=== PATIENT | female | born 2000 | race Caucasian/White ===

== ENCOUNTER 2023-09-24 14:15 | Outpatient (REF) | payer OTHER, SELFPAY ==
--- NOTE | ~2023-09-24 | XR_ITS ---
EXAMINATION: XR LUMBOSACRAL SPINE CLINICAL INFORMATION: Lower back pain. COMPARISON: None available. TECHNIQUE: AP and lateral views of the lumbar spine and lateral view of the lumbosacral junction. FINDINGS: The vertebral bodies and posterior elements are normal. The disc spaces are preserved and the vertebral alignment is normal. The paraspinal soft tissues are normal. XR/XR lumbar spine 2-3V IMPRESSION: Unremarkable examination.
[2023-09-24 15:46] LABS: MANUAL DIFF FLAG NO
[2023-09-24 15:48] LABS: Basophils Absolute Auto 0.1 X10*3/uL (0.0-0.2); Basophils Percent Auto 0.7 % (0-2); Eosinophils Absolute Auto 0.2 X10*3/uL (0.0-0.4); Eosinophils Percent Auto 3.3 % (0-4); Hematocrit 43.2 % (37.0-47.0); Hemoglobin 14.2 g/dl (12.0-16.0); Imm Gran Abs Auto 0.03 X10*3/uL (0.00-0.03); Imm Gran Pct Auto 0.4 % (0.0-0.4); Lymphocytes Absolute Auto 1.8 X10*3/uL (1.2-4.9); Mean Corpuscular HGB Conc 32.9 g/dl (31.0-35.0); Mean Corpuscular Hemoglobin 30.1 pg (27.0-33.0); Mean Corpuscular Volume 91.5 fL (80.0-98.0); Mean Platelet Volume 10.7 fL (9.4-12.3); Monocytes Absolute Auto 0.4 X10*3/uL (0.1-1.2); Neutrophils Absolute Auto 4.9 x10*3/uL (2.0-8.3); Neutrophils Percent Auto 65.6 % (45-73); Platelet Count 277 X10*3/uL (160-400); Red Blood Count 4.72 X10*6/uL (4.20-5.50); Red Cell Distribution Width 12.5 % (11.0-16.0); White Blood Count 7.4 X10*3/uL (4.8-10.8)
[2023-09-24 16:07] LABS: Alanine Aminotransferase 13 U/L (0-31); Albumin Level 3.7 g/dL (3.5-5.0); Alkaline Phosphatase 61 U/L (39-117); Anion Gap 12 (12-20); Aspartate Amino Transferase 14 U/L (5-31); Bilirubin Total 0.2 mg/dL (0.0-1.0); Blood Urea Nitrogen 12 mg/dL (9-16); Calcium 8.9 mg/dL (8.4-10.2); Carbon Dioxide 26 mmol/L (22-29); Chloride 106 mmol/L (96-108); Cholesterol 184 mg/dL (<200); Estimated Glomerular Filt Rate > 60; Glucose Fasting 82 mg/dL (60-99); HDL Cholesterol 58 mg/dL (>40); LDL Cholesterol Calculated 104 mg/dL (<100); Potassium 3.9 mmol/L (3.3-5.1); Sodium 140 mmol/L (135-145); Total Protein 6.7 g/dL (6.5-8.0); Triglycerides 110 mg/dL (<150)
[2023-09-24 16:23] LABS: Free T4 (Free Thyroxine) 0.93 ng/dL (0.71-1.85); Thyroid Stimulating Hormone 1.13 uIU/mL (0.32-4.0)
== END 2023-09-24 14:16 | disposition home or self-care (01) ==
LOC: HO.HMGCX 14:15
PROVIDERS: PCP Internal Medicine; Visit Provider Internal Medicine
DX: M54.50 Low back pain, unspecified (principal); R53.83 Other fatigue; E78.5 Hyperlipidemia, unspecified
CPT/HCPCS: 36415; 72100; 80053; 80061; 84439; 84443; 85025

== ENCOUNTER 2025-08-11 11:42 | Outpatient (REF) | payer OTHER, SELFPAY ==
[2025-08-11 11:55] LABS: MANUAL DIFF FLAG NO
[2025-08-11 12:11] LABS: Hematocrit 42.8 % (37.0-47.0); Hemoglobin 14.2 g/dl (12.0-16.0); Imm Gran Abs Auto 0.02 X10*3/uL (0.00-0.03); Imm Gran Pct Auto 0.2 % (0.0-0.4); Lymphocytes Absolute Auto 2.0 X10*3/uL (1.2-4.9); Mean Corpuscular HGB Conc 33.2 g/dl (31.0-35.0); Mean Corpuscular Hemoglobin 30.5 pg (27.0-33.0); Mean Corpuscular Volume 91.8 fL (80.0-98.0); NRBC Abs Auto 0.000 X10*3/uL (0.0-0.012); NRBC Pct Auto 0.0 /100WBC (0.0-0.2); Platelet Count 268 X10*3/uL (160-400); Red Blood Count 4.66 X10*6/uL (4.20-5.50); White Blood Count 8.1 X10*3/uL (4.8-10.8)
[2025-08-11 12:43] LABS: Alanine Aminotransferase 16 U/L (0-31); Albumin Level 4.1 g/dL (3.5-5.0); Alkaline Phosphatase 67 U/L (39-117); Anion Gap 10 (12-20); Aspartate Amino Transferase 39 U/L (5-31); Blood Urea Nitrogen 14 mg/dL (9-16); Calcium 8.9 mg/dL (8.4-10.2); Carbon Dioxide 27 mmol/L (22-29); Chloride 108 mmol/L (96-108); Cholesterol 178 mg/dL (<200); Estimated Glomerular Filt Rate > 60; HDL Cholesterol 58 mg/dL (>40); Potassium 4.1 mmol/L (3.3-5.1); Sodium 141 mmol/L (135-145); Total Protein 6.8 g/dL (6.5-8.0); Triglycerides 207 mg/dL (<150)
[2025-08-11 13:09] LABS: Folate 12.5 ng/mL (> or = 4.0); Vitamin B12 298 pg/mL (200-900)
--- OUTSIDE RECORDS SUMMARY | 2025-08-11 13:57 | XMS_ITS | Clinical Summary ---
Author Organization [facility] Address [address] [address] Phone Care Team Providers Care Mortgage Loan Closer Name Role Phone Messi Billings DO Unavailable Messi Billings DO Primary Care Provider [phone] Allergies Active Allergy Reactions Criticality Noted Date Comments Tree Nuts Anaphylaxis High 02/03/2020 Medications EPINEPHrine 0.3 mg/0.3 mL auto-injector as directed 1 Active LORazepam (ATIVAN) 1 MG tabletIndicatio ns:Anxiety Take 1 tablet by mouth 1 hour prior to procedure. 1 tablet 3 Active Additional Information Patient not taking.Reported on 06/01/2025 buPROPion SR (SMOKING DETERRENT) 150 mg Take 1 tablet by mouth every morning. 3 Active LORazepam (ATIVAN) 1 MG tabletIndicatio ns:Anxiety due to invasive procedure Take 1 tablet 1 hour prior to procedure. 1 tablet 4 Active Additional Information Patient not taking.Reported on 06/01/2025 LORazepam (ATIVAN) 1 MG tabletIndicatio ns:Anxiety due to invasive procedure Take one tablet one hour prior to procedure. 1 tablet 4 Active Additional Information Patient not taking.Reported on 06/01/2025 norgestrel-ethi nyl estradioL (LOW-OGESTREL, 28,) 0.3-0.03 mg per tabletIndicatio ns:Uses control Take 1 tablet by mouth every morning. 84 tablet 3 5 Active Active Problems Problem Noted Date Diagnosed Date Mild episode of recurrent major depressive disor mami 02/07/2024 Assessment & Plan (02/07/2024 4:48 PM EDT): Charissa has a history of depression-she is taking her bupropion as directed-she sees a psychiatrist. Atypical squamous cells of u ndetermined significance (ASCUS) on Papanicolaou smear of cervix 02/07/2024 Assessment & Plan (02/07/2024 4:47 PM EDT): Charissa is due for repeat Pap-she has an appointment with her DECORATING MACHINE OPERATOR in the near future. Status post LEEP noted on her surgical history. Chronic bilateral low back pain without sciatica 02/07/2024 Assessment & Plan (02/07/2024 4:48 PM EDT): Charissa presents as a new patient to [facility]. She signed a record release-I will review her previous medical records in detail. She notes that she has had an x-ray of the lower back in the past showing no major abnormalities. She has tenderness palpation along the SI joints bilaterally and not along the lumbar spine-I put a referral into physical therapy today. I gave her guidance to continue with her exercise routine. I informed her to call if her symptoms are getting worse at which point I will further investigate with image studies and likely referral to physiatry. Follow-up in 3 months for her CPE. She understands and agrees with this plan of action. Need for hepatitis C screening test 02/07/2024 Assessment & Plan (02/07/2024 4:49 PM EDT): Charissa will go for the above lab work and I will update her with result. Screening for human immunodeficiency virus 02/06 Assessment & Plan (02/07/2024 4:49 PM EDT): Charissa will go for the above lab work and I will update her with result. Dysuria 02/07/2024 Assessment & Plan (02/07/2024 4:47 PM EDT): Charissa presents for ongoing dysuria. She had a urine check done at an urgent care recently-no infection appreciated but she was given prophylactic antibiotics and completed this-no improvement. I will have her go for repeat urinalysis with reflex. I will also have her go for an STD check as well as a CMP and I will update her with the results. I informed her to call if her symptoms get worse or if there are any other issues or concerns. She understands and agrees. Screen for STD (sexually transmitted disease) Assessment & Plan (02/07/2024 4:49 PM EDT): Charissa will go for the above lab work and I will update her with result. Need for Td vaccine 02/07/2024 Assessment & Plan (02/07/2024 4:49 PM EDT): Charissa is due for a Td booster-she was in agreement with this. This was given today in the office. No complications. She was appreciative. Jaw pain 02/07/2024 Assessment & Plan (02/07/2024 4:50 PM EDT): Charissa has been having jaw pain intermittently. Currently no issues today. She will follow-up with her dentist in the fall. I informed her to call if there are any other issues or concerns. She understands and agrees. 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 Had trial of expectant management with frequent colposcopy. But continued to have ROHIT III on biopsies; so LEEP performed by [facility] provider at [facility]. Pos margin reported. Recommendation of prior provider was 6 month repeat pap. ASCCP Guidelines: age based guidelines are lacking but with pos margin recommend repeat pap and ECC in 4-6 months and then cotesting x 2 years. If all normal then repeat pap in 3 years. If any abnormality, will need to repeat colpo. Assessment & Plan (02/05/2020 4:32 PM EDT): Pap done today History of loop electrical excision procedure (L EEP) 02/05/2020 Overview (02/05/2020): 09/02/2019: Secondary to ROHIT III, pos Margin. Assessment & Plan (02/05/2020 4:33 PM EDT): Repeat pap done today. Encounters Date Type Department Care Team Description 07/08/2025 Refill [facility] [address] [place] [address] Iraida Burt MA Medication Refill 06/01/2025 5:00 PM EDT Office Visit [facility] [address] [place] [address] Marine Argueta CNP Frequency of micturition (Primary Dx) from Last 3 Months Immunizations Immunization Administration Dates Next Due DTaP 01/11/2004, 0,06/10/1999,05/02,03/07/1999 [id number] FORMULATION 10/08/2009 HPV,quadrivalent 07/19/2015, 5,01/08/2015,06/12 Hepatitis A, Unspecified 03/30/2011 Hepatitis A, pediatric, unsp ecified formulation 01/08/2015,03/30/2011 Hepatitis B 06/10/1999,01/03/1999,1998 Hepatitis B, unspecified formulation 06/10/1999, 01/03/1999,1998 Hib, unspecified formulation 03/05/2000, 06/10/1999,04/12/1999,03/07 Hib,PRP-T 03/05/2000, 9,04/12/1999,03/07 INFLUENZA, SPLIT VIRUS, TRIV ALENT W/ PRESERVATIVE IM 06/18/2015,05/27/2012,06/05/2011 IPV 01/11/2004, 0,05/02/1999,03/07 Influenza Quadrivalent MDCK Preservative Free IM 04/27/2019 Influenza trivalent preserva tive free intradermal 06/12/2014 Influenza, whole 10/08/2009 MMR 01/11/2004,12/05/1999 Meningococcal ACWY, unspecif ied formulation 01/08/2015,02/10/2010 Meningococcal MCV4P 02/10/2010 Pneumococcal conjugate, PCV 7 06/08/2000, 000 Rotavirus,pentavalent 03/07/1999 Td (adult),2 Lf Tetanus Toxo id, PF, Adsorbed 02/07/2024 Tdap 03/30/2011 Varicella 08/12/2020,03/30/2011,12/05/1999 Family History Medical History Relation Comments Hyperlipidemia Father Hypertension Father Anxiety disorder Mother Depression Mother Strabismus Mother Thyroid cancer Mother Cancer Paternal Aunt Prostate cancer Paternal Grandfather Breast cancer Paternal Grandmother CV disease Paternal Grandmother Skin cancer Unspecified Relation Status Comments Father Alive Mother Alive Paternal Aunt Paternal Grandfather Paternal Grandmother Unspecified Social History Tobacco Use Types Packs/Day Years Used Date Smoking Tobacco: Never Smokeless Tobacco: Never Tobacco Cessation:Counseling Given: Not Answered Alcohol Use Standard Drinks/Week Comments Yes 6 (1 standard drink = 0.6 oz pure alcohol) 1-2 times a week, 3 drinks at a time on average Child or Family Care Answer Date Record ed Do you have problems with on e of the following making it difficult for you to work, study, or receive health care? No 02/07/2024 Education Answer Date Recorded Are you interested in help w ith more adult education (for example, completing high school, GED, job training, learning the [place] language, technical skills, or developing parenting skills)? No 02/07/2024 Are you concerned about learning? Not on file 02/07/2024 No 02/07/2024 Yes 02/07/2024 Food Answer Date Recorded Within the past 6 months we worried whether our food would run out before we got money to buy more. Sometimes True 024 Within the past 6 months the food we bought just didn't last and we didn't have enough money to get more. Never True 01/10 Residential Stability Answer Date Recor ded What is your housing situation today? I have a place to live today, but I am worried about losing it in the next 3 months 02/07/2024 How many times have you move d in the past 12 months? Zero (I did not move) 02/07/2024 Paying for Meds Answer Date Recorded Do you have trouble paying for medicines? Yes 02/07/2024 Paying Utility Bills Answer Date Record ed Do you have trouble paying your heating or elect ricity bill? No 02/07/2024 Transportation Answer Date Recorded Has the lack of transportati on kept you from medical appointments or from getting medications? No 02/07/2024 Unemployment Answer Date Recorded Are you currently unemployed or working on a part-time or temporary basis, and looking for work? No 02/07/2024 Digital Access Answer Date Recorded No 02/07/2024 Yes 02/07/2024 Do you have reliable internet access at home? Ye s 02/07/2024 Do you have a device (e.g., phone, tablet, computer) with a working camera? Yes 02/07/2024 SNAP & WIC Answer Date Recorded Do you receive benefits from SNAP (the Supplemental Nutrition Assistance Program) or the Food Stamp Program? Yes 02/07/2024 SNAP is a free program, interested in learning m ore? Not on file 02/07/2024 Can we help you enroll in SNAP? Not on file 02/07/2024 Benefits received from WIC? Not on file 01/10 WIC is a free program, interested in learning mo re? Not on file 02/07/2024 Can we help you enroll in WIC? Not on file 0 02/07/2024 Intimate Partner Violence Answer Date R ecorded Denied Basic Needs Not on file 02/07/2024 In the past 12 months have y ou been in a relationship with a person who hurts, threatens, or tries to control you? No 02/07/2024 Worried food would run out Not on file 02/06 In the past 12 months have y ou been in a relationship with a person who hurts, threatens, or tries to control you? 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 Not on file Not on fi le Not on file Last Filed Vital Signs Vital Sign Reading Time Taken Comments Blood Pressure 110/76 06/01/2025 5:25 PM EDT Pulse 72 06/01/2025 5:25 PM EDT Temperature 36.9 C (98.4 F) 06/01/2025 5:25 PM EDT Respiratory Rate 16 06/01/2025 5:25 PM EDT Oxygen Saturation 99% 06/01/2025 5:25 PM EDT Inhaled Oxygen Concentration - - Weight 59 kg (130 lb) 06/01/2025 5:25 PM EDT Height 162.6 cm (5' 4 ) 06/01/2025 5:25 PM EDT Body Mass Index 22.31 06/01/2025 5:25 PM EDT Plan of Treatment Health Maintenance Due Date Last Done Comments PNEUMOCOCCAL VACCINES (0-49 years) (1 of 2 - PCV) 2017 06/08/2000, 04/04/2000 DEPRESSION SCREENING 02/06/2025 02/07/2024, 02/07/20 24 INFLUENZA VACCINE (#1) 2025 9, 06/18/2015, 06/12/2014, Additional history exists PAP SMEAR 05/07/2025 05/07/2024, 02/2023, 10/20/2020, Additional history exists COVID-19 VACCINE ( season) 2025 09/19/2021, 02/08/2021, 01/10/2021 HEPATITIS C SCREENING 12/09/2025 Postpo anni from 2016 (Patient Declines / Guardian Declines) HIV ONE-TIME SCREENING (18-65 YEARS) 12/09/2025 Postponed from 2016 (Patient Declines / Guardian Declines) Adult Td,Tdap Booster 02/06/2034 02/07/2024 , 03/08/2021, 03/30/2011 HIB VACCINES Completed 03/05/2000, 02/09, 06/10/1999, Additional history exists HEPATITIS A VACCINES Completed 01/08/2015, 03/30/2011, 03/30/2011 MENINGOCOCCAL VACCINES (ACWY) Completed 01/08/2015, 02/10/2010, 02/10/2010 HPV VACCINES Completed 07/19/2015, 02/2015, 01/08/2015, Additional history exists SMOKING STATUS SCREENING (Once After 26 Yrs) Completed 06/03/2024 MENINGOCOCCAL VACCINES (B) Aged Out N o longer eligible based on patient's age to complete this topic Medical Devices Not on file Procedures Procedure Name Priority Date/Time Associated Diagnosis Comments URINE CULTURE Routine 06/01/2025 6:04 PM EDT Frequency of micturition POCT URINE DIPSTICK Routine 06/01/2025 5 :32 PM EDT PAP TEST Routine 05/07/2024 12:00 AM EDT from Last 3 Months or Most Recently Relevant to Health Maintenance Results * (ABNORMAL) Urine Culture (06/01/2025 6:04 PM EDT) Special Requests None 06/01/2025 6:04 PM EDT [facility] Urine Culture 10,000 to 100,000 colony forming units per mL MIXED LINA (3 OR MORE COLONY TYPES) Culture indicates contamination . Please resubmit if necessary.(A) 06/03/2025 10:05 AM EDT [facility] Urine (Urine) 06/01/2025 6:0 4 PM EDT 06/01/2025 6:28 PM EDT us Marine Argueta BLOCK OPERATOR LAB MICROBIOLOGY CULTURE OR DERABLES Final Result [facility] [address] [place] [address] * (ABNORMAL) POCT Urine Dipstick (Automated) (06/01/2025 5:32 PM EDT) COLOR Yellow [facility] TURBIDITY Clear [facility] GLUCOSE, POCT Negative Negative [facility] KETONE, POCT Negative Negative [facility] OCCULT BLOOD, POCT Trace Lysed(A) Negative [facility] SPECIFIC GRAVITY, POCT 1.025 1.001 - 1.030 [facility] ALBUMIN, POCT Negative Negative [facility] Bili Negative Negative [facility] Urobilinogen 0.2 <1.0 [facility] NITRITE, POCT Negative Negative [facility] PH, POCT 6.0 5.0 - 8.0 [facility] WBC SCREEN, POCT 1+(A) Negative [facility] 06/01/2025 5:32 PM EDT 06/01/2025 5:34 PM EDT Marine Argueta [facility] POCT ENTER/EDIT ORDERAB LES Final Result [facility] [address] [phone] * Pap Test (05/07/2024 12:00 AM EDT) [place] [address] Nematologist: Maribel Sy MD DECORATING MACHINE OPERATOR Cytology Report FINAL DIAGNOSIS A. PAP SMEAR (THIN PREP) CE: SPECIMEN ADEQUACY: Satisfactory for evaluation; transformation zone present. INTERPRETATION: EPITHELIAL CELL ABNORMALITY - SQUAMOUS. Atypical squamous cells of undetermined significance. Coccobacilli consistent with shift in lina This specimen was analyzed by the automated ThinPrep Imaging System (Asurint.) and manually rescreened by a track watchman and/or pathologist. Electronically Signed Out By: MD Anna Pat CT(ASCP) By his/her signature above, the pathologist listed as making the Final Diagnosis certifies that he/she has personally reviewed this case and confirmed or corrected the diagnosis. The Pap test is a screening test primarily for squamous cancers and precursors and has associated false-negative and false-positive results. New technologies such as liquid-based preparations may decrease but will not eliminate all false-negative results. Regular sampling and follow-up of unexplained clinical signs and symptoms are recommended to minimize false negative results. PROCEDURES/ADDENDA HPV Testing (Requested) Ordered Date: 05/08/2024 A. PAP SMEAR (THIN PREP) CE: Human Papilloma Virus Test NEGATIVE for high-risk Human Papilloma Virus types 16, 18, 45 and the Other high risk probe set (Includes 31, 33, 35, 39, 51, 52, 56, 58, 59, 66, 68) Note: Testing performed by Viv[employer]ream HR-HPV analysis. Clinical correlation is advised. This HPV test was performed at [facility], [address] [place] [address]. This test has been FDA approved for both SurePath and ThinPrep cervical cytology specimens. The accuracy and precision of this test for all other specimen sources has been verified in the Cytopathology Laboratory of the [facility] and has not been cleared or approved by the U.S. Food and Drug Administration. Clinical correlation is advised. CLINICAL HISTORY Date of Last Menstrual Period: 04-14-2024 Contraceptive History: BCPs Other Clinical Conditions: Screening Pap Abnormal BX: ROHIT 2 Abnormal PAP: ASCUS, 2022 SPECIMEN SOURCE A: PAP SMEAR (THIN PREP) CE Patient Name: CHARISSA ALLEN : 2000 (Age: 23) Sex: F Institution: [facility] Location: [facility] Date of Collection: 05/07/2024 Date of Reported: 05/15/2024 15:07 Results to: Willard Beck MD, BS [facility] Final Diagnosis A. PAP SMEAR (THIN PREP) CE: SPECIMEN ADEQUACY: Satisfactory for evaluation; transformation zone present. INTERPRETATION: EPITHELIAL CELL ABNORMALITY - SQUAMOUS. Atypical squamous cells of undetermined significance. Coccobacilli consistent with shift in lina This specimen was analyzed by the automated ThinPrep Imaging System (Asurint.) and manually rescreened by a track watchman and/or pathologist. [facility] Results\Inte rpretation A. PAP SMEAR (THIN PREP) CE: Human Papilloma Virus TestNEGATIVE for high-risk Human Papilloma Virus types 16, 18, 45 and the Other high risk probe set (Includes 31, 33, 35, 39, 51, 52, 56, 58, 59, 66, 68)Note: Testing performed by [employer] Onclarity HR-HPV analysis. Clinical correlation is advised. This HPV test was performed at [facility], [address] [place] [address]. This test has been FDA approved for both SurePath and ThinPrep cervical cytology specimens. The accuracy and precision of this test for all other specimen sources has been verified in the Cytopathology Laboratory of the [facility] and has not been cleared or approved by the U.S. Food and Drug Administration. Clinical correlation is advised. [facility] Conversion Type (Conversion Source) 05/07/2024 05/08/2024 10:37 AM EDT us Willard Beck MD CYTOLOGY ORDERABLES Edited Re javi - Final [facility] [address] [place] [address] from Last 3 Months or Most Recently Relevant to Health Maintenance Insurance [facility] NON NSPG PCP [facility] NON NSPG PCP [employer] NON NSPG PCP S[employer] NON NSPG PCP [employer] WELLSENSE NON NSPG PCP [facility] CONNECTOR[facility]ARE [place] [facility] NON NSPG PCP [employer] CONNECTORCARE WORKERS COMPENSATION Care Teams Mortgage Loan Closer Relationship Specialty Start Date End Date Messi Billings DO [address] [facility] [address] [place] [address] [email or web address] PCP - General Family Medicine 05/15/24 Messi Billings DO [address] [facility] [address] [place] [address] [email or web address] Family Medicine 02/11/24 Additional Source Comments The information contained in this document represents components of the legal health record. It is not the complete legal health record.[facility]
--- OUTSIDE RECORDS SUMMARY | 2025-08-11 13:57 | XMS_ITS | Encounter Summary ---
Author Organization [facility] Address [address] [place] [address] Phone Care Team Providers Care Director Wholesale Name Role Phone Pcp, Unknown Primary Care Provider Zafar Lewis MD Primary Care Provider [phone] Pcp, Unknown Primary Care Provider Messi Terry DO Primary Care Provider [phone] Unknown, Unknown Primary Care Provider Messi Williamson DO Unavailable Messi Billings DO Primary Care Provider Encounter Details Date Type Department Care Team (Late st Contact Info) Description 08/21/2023 Telephone [facility] [address] [place] [phone] Pcp, Unknown Social History Tobacco Use Types Packs/Day Years Used Date Smoking Tobacco: Never Smokeless Tobacco: Never Alcohol Use Standard Drinks/Week Comments Yes 0 (1 standard drink = 0.6 oz pur e alcohol) occasionally Education Answer Date Recorded Are you interested in more education? Not on emily e 01/05/2023 Are you concerned about learning? Not on file 01/05/2023 No 01/05/2023 No 01/05/2023 Digital Access Answer Date Recorded No 02/03/2023 No 02/03/2023 Reliable internet access at home? Not on file 02/03/2023 Device with a working camera? Not on file Comments No Sex and Gender Information Value [...] Not on file Not o n file documented as of this encounter Plan of Treatment Not on file documented as of this encounter Visit Diagnoses Not on filedocumented in this encounter Care Teams Director Wholesale Relationship Specialty Start Date End Date Pcp, Unknown PCP - General 12/04/22 10/01/23 Zafar Dominguez MD [address] [place] [id number] PCP - General Internal Medicine 10/02/23 12/23/23 Pcp, Leah PCP - General 12/24/23 02/06/24 Messi Billings DO [address] [place] [id number] [email or web address] PCP - General Family Medicine 02/07/24 02/10/24 Unknown, MD Leah PCP - General 02/11/24 05/14/24 Messi Billings DO [address] [place] [phone] [email or web address] PCP - General Family Medicine 05/15/24 Messi Billings DO [address] [place] [phone] [email or web address] Medicine 02/11/24 documented as of this encounter Additional Source Comments The information contained in this document represents components of the legal health record. It is not the complete legal health record.[facility]
== END 2025-08-11 11:43 | disposition home or self-care (01) ==
LOC: HO.LAB 11:42
PROVIDERS: Visit Provider Registered Nurse Addiction (Substance Use Disorder)
DX: F33.9 Major depressive disorder, recurrent, unspecified (principal); Z79.899 Other long term (current) drug therapy
CPT/HCPCS: 36415; 80053; 80061; 82306; 82607; 82746; 83036; 84443; 85025